=== PATIENT | female | born 1960 | race Caucasian/White ===

== ENCOUNTER → 2018-03-27 | Outpatient (CLI) | payer BC ==
--- NOTE | 2018-03-27 11:21 | XR ---
EXAMINATION TYPE: XR shoulder complete RT DATE OF EXAM: 03/27/2018 COMPARISON: NONE HISTORY: Pain TECHNIQUE: Three views are submitted. FINDINGS: The osseous structures are intact. There is no acute fracture or dislocation. Mild arthropathy of th e AC joint. Surgical clips overlying the axilla. IMPRESSION: 1. Mild right AC joint arthropathy
== END | disposition home or self-care (01) ==
LOC: RADXRYALE 10:54
PROVIDERS: ATTEND Internal Medicine
DX: M19.011 Primary osteoarthritis, right shoulder (principal)

== ENCOUNTER 2019-01-20 07:30 | Emergency (ER) | payer BC, OTHER ==
[2019-01-20 07:50] VITALS: TEMP 97.7
[2019-01-20] MEDS ORDERED: KETOROLAC 60 MG/2 ML VIAL IVP STA (08:11)
--- NOTE | 2019-01-20 08:23 | ED ---
General Adult HPI - General Chief complaint: Headache Stated complaint: headache x 8 days Time Seen by Provider: 01/20/19 07:50 Source: patient, RN notes reviewed Mode of arrival: ambulatory Limitations: no limitations - History of Present Illness Initial comments: This is a 58-year-old female who presents to the emergency department complaining of a headache. Patient states the headache has been ongoing for 8 days. Patient states started 1 day and is on at the right occipital area. Patient states it hurts to touch her scalp in that area and every once a while she has a sharp pain lasting 1-2 seconds. Patient states the pain radiates down into her face a little bit into her neck but it's gone quickly. Patient denies any fever or chills patient denies any trauma. Patient denies any blurred vision or slurred speech numbness or weakness. Patient has not noted any neurologic deficit. Patient states she's been taking Motrin and it does seem to help but then the pain comes back. Patient saw the primary medical care doctor and she sent her in to be evaluated and have a CAT scan of her head. - Related Data Home Medications Medication Instructions Recorded Confirmed No Known Home Medications 01/20/19 01/20/19 Allergies Allergy/AdvReac Type Severity Reaction Status Date / Time No Known Allergies Allergy Verified 01/20/19 08:05 Review of Systems ROS Statement: Those systems with pertinent positive or pertinent negative responses have been documented in the HPI. ROS Other: All systems not noted in ROS Statement are negative. Past Medical History Past Medical History: No Reported History, Cancer Additional Past Medical History / Comment(s): migraine History of Any Multi-Drug Resistant Organisms: None Reported Past Surgical History: Hysterectomy Additional Past Surgical History / Comment(s): double mastectomy, brain surgery for migraines Past Psychological History: No Psychological Hx Reported Smoking Status: Current every day smoker Past Alcohol Use History: None Reported Past Drug Use History: None Reported General Exam - General Exam Comments Initial Comments: GENERAL: Patient is well-developed and well-nourished. Patient is nontoxic and well- hydrated and is in mild distress. ENT: Neck is soft and supple. No significant lymphadenopathy is noted. Oropharynx is clear. Moist mucous membranes. Neck has full range of motion without eliciting any pain. EYES: The sclera were anicteric and conjunctiva were pink and moist. Extraocular movements were intact and pupils were equal round and reactive to light. Eyelids were unremarkable. PULMONARY: Unlabored respirations. Good breath sounds bilaterally. No audible rales rhonchi or wheezing was noted. CARDIOVASCULAR: There is a regular rate and rhythm without any murmurs gallops or rubs. ABDOMEN: Soft and nontender with normal bowel sounds. SKIN: Skin is clear with no lesions or rashes and otherwise unremarkable. NEUROLOGIC: Patient is alert and oriented x3. Cranial nerves II through XII are grossly intact. Motor and sensory are also intact. Normal speech, volume and content. Symmetrical smile. MUSCULOSKELETAL: Normal extremities with adequate strength and full range of motion. LYMPHATICS: No significant lymphadenopathy is noted PSYCHIATRIC: Normal psychiatric evaluation. Limitations: no limitations Course Vital Signs 01/20/19 07:48 Temperature 97.7 F Pulse Rate 67 Respiratory 20 Rate Blood Pressure 150/83 O2 Sat by Pulse 99 Oximetry Medical Decision Making - Medical Decision Making CT of the brain shows no acute abnormality. Patient states the Toradol did help but she still has pain to her scalp when she touches. I reexamined I could find no abnormality on her scalp no swelling no redness no rash or lesion - Lab Data Result diagrams: 01/20/19 08:38 01/20/19 08:38 Lab Results 01/20/19 01/20/19 Range/Units 08:38 08:38 WBC 9.2 (3.8-10.6) k/uL RBC 5.26 (3.80-5.40) m/uL Hgb 15.5 (11.4-16.0) gm/dL Hct 46.1 H (34.0-46.0) % MCV 87.7 (80.0-100.0) fL MCH 29.5 (25.0-35.0) pg MCHC 33.6 (31.0-37.0) g/dL RDW 15.3 (11.5-15.5) % Plt Count 269 (150-450) k/uL Neutrophils % 71 % Lymphocytes % 20 % Monocytes % 5 % Eosinophils % 2 % Basophils % 1 % Neutrophils # 6.5 (1.3-7.7) k/uL Lymphocytes # 1.9 (1.0-4.8) k/uL Monocytes # 0.4 (0-1.0) k/uL Eosinophils # 0.2 (0-0.7) k/uL Basophils # 0.1 (0-0.2) k/uL ESR 13 (0-20) mm/hr Sodium 141 (137-145) mmol/L Potassium 4.3 (3.5-5.1) mmol/L Chloride 109 H (98-107) mmol/L Carbon Dioxide 25 (22-30) mmol/L Anion Gap 7 mmol/L BUN 20 H (7-17) mg/dL Creatinine 0.83 (0.52-1.04) mg/dL Est GFR (CKD-EPI)AfAm >90 (>60 ml/min/1.73 sqM) Est GFR (CKD-EPI)NonAf 78 (>60 ml/min/1.73 sqM) Glucose 102 H (74-99) mg/dL Calcium 9.7 (8.4-10.2) mg/dL Total Bilirubin 0.4 (0.2-1.3) mg/dL AST 19 (14-36) U/L ALT 21 (9-52) U/L Alkaline Phosphatase 62 (38-126) U/L Total Protein 7.2 (6.3-8.2) g/dL Albumin 4.1 (3.5-5.0) g/dL Disposition Clinical Impression: Scalp tenderness Disposition: HOME SELF-CARE Condition: Good Instructions (If sedation given, give patient instructions): Acute Headache (ED) Additional Instructions: Patient should follow-up with Dr. Eckert Is patient prescribed a controlled substance at d/c from ED?: No Referrals: Amy Eckert MD [Primary Care Provider] - 1-2 days Time of Disposition: 10:26
[2019-01-20 08:54] LABS: Basophils # (A) 0.1 k/uL (0-0.2); Basophils % (A) 1 %; Eosinophils # (A) 0.2 k/uL (0-0.7); Eosinophils % (A) 2 %; HCT 46.1 % (34.0-46.0); HGB 15.5 gm/dL (11.4-16.0); Lymphocytes # (A) 1.9 k/uL (1.0-4.8); Lymphocytes % (A) 20 %; MCH 29.5 pg (25.0-35.0); MCHC 33.6 g/dL (31.0-37.0); MCV 87.7 fL (80.0-100.0); Mean Platelet Volume 6.8; Monocytes # (A) 0.4 k/uL (0-1.0); Monocytes % (A) 5 %; Neutrophils # (A) 6.5 k/uL (1.3-7.7); Neutrophils % (A) 71 %; Platelet Count 269 k/uL (150-450); RBC 5.26 m/uL (3.80-5.40); RDW 15.3 % (11.5-15.5); WBC 9.2 k/uL (3.8-10.6)
--- NOTE | 2019-01-20 09:02 | CT ---
EXAMINATION TYPE: CT brain wo con DATE OF EXAM: 01/20/2019 HISTORY: Severe Rt sided head pain, history of prior brain surgery for migraines CT DLP: 1091.4 mGycm. Automated Exposure Control for Dose Reduction was Utilized. TECHNIQUE: CT scan of the head is performed without contrast. COMPARISON: MRI/MRA brain February 26, 2012. FINDINGS: Low occipital craniectomy defect probable from Chiari decompression surgery is redemonstrat ed. There is no acute intracranial hemorrhage or midline shift identified. Ventricles and sulci are within normal limits in size for patient's age. Multifocal areas of low attenuation throughout the wh ite matter are better seen on prior MRI versus CT. The globes are intact and the visualized sinuses are clear. IMPRESSION: No acute intracranial hemorrhage or midline shift. Prior successful posterior decompress ion surgery redemonstrated.
[2019-01-20 09:05] LABS: ALT 21 U/L (9-52); AST 19 U/L (14-36); African American GFR (CKD) >90 (>60 ml/min/1.73 sqM); Albumin 4.1 g/dL (3.5-5.0); Alkaline Phosphatase 62 U/L (38-126); Anion Gap 7 mmol/L; Blood Urea Nitrogen 20 mg/dL (7-17); Calcium 9.7 mg/dL (8.4-10.2); Carbon Dioxide 25 mmol/L (22-30); Chloride 109 mmol/L (98-107); Glucose 102 mg/dL (74-99); Potassium 4.3 mmol/L (3.5-5.1); Sodium 141 mmol/L (137-145); Total Bilirubin 0.4 mg/dL (0.2-1.3); Total Protein 7.2 g/dL (6.3-8.2)
[2019-01-20 10:00] LABS: Erythrocyte Sedimentation Rate 13 mm/hr (0-20)
[2019-01-20 11:02] VITALS: BP 160/88; PULSE 58; RESP 18
== END 2019-01-20 10:58 | disposition home or self-care (01) ==
LOC: EC 07:30
DX: R51 Headache (principal); M54.2 Cervicalgia; F17.200 Nicotine dependence, unspecified, uncomplicated; Z85.9 Personal history of malignant neoplasm, unspecified; Z86.69 Personal history of other diseases of the nervous system and sense organs
CPT/HCPCS: 36415; 80053; 85652; 85025; 86618; 70450; 99284; 96374; J1885

== ENCOUNTER → 2021-05-24 | Outpatient (CLI) | payer OTHER | END | disposition home or self-care (01) | LOC: LABWHC1 12:09 | PROVIDERS: ATTEND Internal Medicine | DX: U07.1 COVID-19 (principal) | CPT/HCPCS: 87635; C9803 ==